=== PATIENT | female | born 1975 | race Hispanic/Latino ===

== ENCOUNTER 2017-01-03 14:41 | Emergency (ER) | payer OTHER ==
[~2017-01-03] VITALS: Ht 172.7 cm; Wt 98.0 kg
[~2017-01-03 14:41] MED LIST: DICYCLOMINE HCL20 MG PO; IBUPROFEN800 MG PO
--- NOTE | 2017-01-03 14:51 | ED CARDIAC/CP/PALPITATIONS ---
History of Present Illness General Chief Complaint: Chest Pain Stated Complaint: CHEST PRESSURE Source: patient Exam Limitations: no limitations Vital Signs & Intake/Output Vital Signs & Intake/Output Vital Signs Date Time Temp Pulse Resp B/P B/P Pulse O2 O2 Flow FiO2 Mean Ox Delivery Rate 01/03 2253 98.9 88 18 112/66 99 Room Air Room Air 01/03 2140 99.4 90 18 105/54 100 Room Air 01/03 2136 95 Nasal 2.0L Cannula 01/03 1954 98.2 88 18 136/72 100 Room Air Room Air 01/03 1707 98.1 90 18 116/66 100 Room Air 01/03 1451 97.9 99 16 122/77 98 Room Air ED Intake and Output 01/04 0000 01/03 1200 Intake Total Output Total Balance Patient 216 lb Weight Weight Reported by Patient Measurement Method Allergies Coded Allergies: oxycodone (From PERCOCET) (GI DISTRESS 01/03/17) Reconcile Medications No Known Home Medications Triage Nurses Notes Reviewed? yes Onset: Gradual Duration: getting worse Timing: recent history Quality/Severity: moderate Location: substernal Radiation: no radiation Activities at Onset: activity HPI: Patient is a 41-year-old female with past medical history of fibromyalgia, anxiety, depression, IBS, and asthma and anemia who presents emergency room stating that approximately one month ago patient began having generalized lower extremity muscle tightness in weakness and associated symptoms of significant heavy vaginal bleeding and clotting production where she states that the bleeding had continued for approximately 3 weeks where patient usually is a regular menstrual cycle history where she states that her symptoms worsens of her generalized weakness fatigue and muscle tightness of her lower extremities. Patient states that 1 week ago the vaginal bleeding had ceased however she states in the last 24 hours of bleeding had recurred to her normal menstrual cycle bleeding production. Patient has associated typical generalized abdominal cramping from her menstrual cycle. Patient also complains of a three-day history of chest tightness and shortness of breath dyspnea on exertion and worsening fatigue patient states that the chest tightness is worse with deep inhalation. Patient does wake up with night sweats since symptoms began and has tactile intermittent fevers. Patient denies any headache neck pain neck stiffness palpitations arm pain and jaw pain nausea vomiting denies any wheezing hemoptysis leg swelling recent travel recent surgery oral contraceptive use or history of DVT or PE. Patient is able tolerate by mouth Patient does complain of dark malodorous urine Denies any smoking tobacco history or illicit drug history (SANDHYA AUGUSTE) Past History Travel History Traveled to [place] past 21 day No Medical History Any Pertinent Medical History? 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 No (SANDHYA AUGUSTE) Review of Systems Review of Systems Constitutional: Reports: see HPI, malaise, weakness. EENTM: Reports: no symptoms. Respiratory: Reports: see HPI, short of breath. Cardiovascular: Reports: see HPI, chest pain. GI: Reports: see HPI. Genitourinary: Reports: see HPI. Musculoskeletal: Reports: see HPI, muscle stiffness. Skin: Reports: no symptoms. Neurological/Psychological: Reports: no symptoms. Hematologic/Endocrine: Reports: no symptoms. Immunologic/Allergic: Reports: no symptoms. All Other Systems: Reviewed and Negative (SANDHYA AUGUSTE) Physical Exam Physical Exam General Appearance: no apparent distress, comfortable, PALE COMPLEXION Cardiovascular: tachycardia Comments: HEENT: Normal EENT exam Neck: Supple, no lymphadenopathy, normal range of motion without pain or tenderness Back: Nontender, no CVA tenderness. Respiratory: Chest nontender. No respiratory distress.breath sounds clear to auscultation bilaterally Abdomen: Soft, nontender nondistended, no appreciable organomegaly. Normal bowel sounds. No ascites Extremity: No edema, no calf tenderness to palpation, normal and equal pulses. Bilateral upper extremity and lower extremity myotomes dermatomes intact Neuro: Alert oriented x3, motor sensory normal, Skin: No appreciable rash on exposed skin, skin is warm and dry. Psych: Mood and affect is normal, memory and judgment is normal. Core Measures ACS in differential dx? Yes Severe Sepsis Present: No Septic Shock Present: No (SANDHYA AUGUSTE) Progress Differential Diagnosis: AMI, aortic dissection, atrial fibrillation, cholecystitis, CHF/pulm edema, costochondritis, hyperkalemia, hypovolemia, hyperthyroid, hyperventilation, intracranial hemorrhage, musculoskeletal pain, myocarditis, pancreatitis, pericarditis, pneumonia, pneumothorax, PSVT, pulmonary embolism, PUD/GERD, PVCs/PACs, respiratory failure, sepsis, unstable angina, V-fib/V-Tach, WPW syndrome Plan of Care: Orders Procedure Date/time Status Regular Diet 01/04 B Active TROPONIN LEVEL 01/03 1930 Complete EKG 01/03 1930 Active BLOOD PRODUCT PICKUP 01/03 1754 Active LEUKOCYTE POOR (PACKED CELLS) 01/03 155 Active Add-on Test (ER Only) 01/03 1556 Active TOTAL IRON BINDING CAPACITY 01/03 1526 Complete FERRITIN 01/03 1526 Complete SERUM IRON 01/03 1526 Complete Telemetry/Local Superintendent 01/03 1516 Active URINALYSIS 01/03 1516 Complete THYROID STIMULATING HORMONE 01/03 1516 Complete TROPONIN LEVEL 01/03 1516 Complete PARTIAL THROMBOPLASTIN TIME 01/03 1516 Complete PROTHROMBIN TIME 01/03 1516 Complete MAGNESIUM 01/03 151 Complete HUMAN BETA HCG SCREEN 01/03 151 Complete FREE T4 01/03 151 Complete D-DIMER 01/03 151 Complete COMPREHENSIVE METABOLIC PANEL 01/03 1516 Complete CBC WITHOUT DIFFERENTIAL 01/03 151 Complete TYPE & SCREEN (NOT X-MATCH) 01/03 151 Complete EKG 01/03 1442 Active Laboratory Tests 01/03/17 194: Troponin I < 0.01 01/03/17 152: Anion Gap 13, Estimated GFR > 60, BUN/Creatinine Ratio 10.0, Glucose 94, Calcium 8.5, Magnesium 1.9, Iron 18 L, TIBC 466, Ferritin 2.7 L, Total Bilirubin 0.5, AST 14, ALT 24, Alkaline Phosphatase 69, Troponin I < 0.01, Total Protein 7.3, Albumin 3.9, Globulin 3.4, Albumin/Globulin Ratio 1.1, TSH 1.490, Free T4 0.76, Total Beta HCG NEGATIVE, PT 11.5, INR 1.10, APTT 24 L, D-Dimer 398 H, CBC w Diff NO MAN DIFF REQ, RBC 3.12 L, MCV 58.9 L, MCH 17.1 L, RDW 18.7 H, MPV 6.9 L, Gran % 66.8, Lymphocytes % 25.5, Monocytes % 3.7, Eosinophils % 4.0, Basophils % 0 L, Absolute Granulocytes 4.1, Absolute Lymphocytes 1.6, Absolute Monocytes 0.2, Absolute Eosinophils 0.3, Absolute Basophils 0, PUBS MCHC 29.0 L 01/03/17 1339: Urine Color YEL, Urine Clarity HAZY H, Urine pH 6.5, Ur Specific [place] 1.020, Urine Protein TRACE H, Urine Ketones TRACE H, Urine Nitrite NEG, Urine Bilirubin NEG, Urine Urobilinogen 1.0, Ur Leukocyte Esterase NEG, Ur Microscopic SEDIMENT EXAMINED, Urine RBC 1-3, Urine WBC RARE, Ur Epithelial Cells MOD H, Urine Bacteria FEW H, Urine Mucus FEW, Urine Hemoglobin LARGE H, Urine Glucose NEG Patient currently is resting comfortably on bedside after INITIAL examination It was noted to me the patient has critical findings of anemia in which she is signed blood transfusion consent form Patient currently also states that she has not actively vaginally bleeding the patient patient still resting comfortably bedside. Discussed patient with Dr. Joel who we discussed disposition and plan is patient to receive second troponin receive IV blood transfusion and to follow-up with hematology CT scan was unremarkable for pulmonary embolism After blood transfusion was administered there was no allergic reaction patient had improvement of her symptoms patient had normal steady gait upon discharge. Patient was strongly advised to follow-up with changer fixer which she states that she has not followed up with him in some time in which patient was also given a referral for DR. WESTBROOK Patient's second set of troponin was unremarkable EKG unremarkable At this time due to history of present illness and lab findings the patient's symptoms are due to chronic worsening iron deficiency anemia. Patient was strongly advised to begin oral supplementation of iron Discussed disposition plan WITH DR. GARZA WHO AGREES (KATHERINE ZHOU,SANDHYA) Diagnostic Imaging: Viewed by Me: CT Scan. Radiology Impression: no acute abnormality, no fracture Initial ED EKG: SINUS RHYTHM NOTED 103 BPM Repeat EKG: unchanged Comments: PATIENT: DOMINGA CHARLES PRESENT AGE: 41 PATIENT ACCOUNT NO: [id number] : 75 LOCATION: [facility] ORDERING PHYSICIAN: SANDHYA ZHOU SERVICE DATE: 01/03/17 EXAM TYPE: CAT - CTA CHEST-PULMONARY EMBOLISM EXAMINATION: CT ANGIOGRAM CHEST WITH AND WITHOUT CONTRAST (CT PULMONARY ANGIOGRAM FOR PE) CLINICAL INFORMATION: Chest pain, elevated D-dimer. COMPARISON: No relevant prior studies are available for comparison. TECHNIQUE: Prior to contrast administration, noncontrast localization images were obtained. Subsequently, multidetector volumetric imaging was performed from the thoracic inlet to below the diaphragms following the administration of 74 mL Optiray 350 intravenous contrast. No contrast reaction reported. Sagittal, coronal, and MIP oblique sagittal reformatted images were obtained on the CT workstation, uploaded to PACS, and reviewed. Total exam dose-length product 530.51 mGy-cm. FINDINGS: QUALITY OF STUDY/CONTRAST BOLUS: Satisfactory PULMONARY ARTERIES: No definite central or segmental pulmonary emboli. There are areas of altered hypodensity throughout the central pulmonary vessels, likely secondary to streak artifact. THORACIC AORTA: No aneurysm or dissection. LUNG: No focal consolidation, nodules or masses. PLEURA: No pleural effusion or pneumothorax. MEDIASTINUM: Normal heart size. No pericardial effusion. No hilar or mediastinal lymphadenopathy. No evidence of septal bowing or right heart strain. CHEST WALL/AXILLA: No axillary or internal mammary lymphadenopathy. OSSEOUS STRUCTURES: No acute or suspicious osseous abnormality. UPPER ABDOMEN: Unremarkable. No reflux of contrast into the hepatic veins to suggest elevated right heart pressures. IMPRESSION: No definite central or segmental pulmonary emboli. Areas of relative hypointensity within the central pulmonary vessels, likely secondary to streak artifact. Clear lungs. VTE: Negative. (SANDHYA AUGUSTE) Departure Departure Disposition: HOME OR SELF CARE Condition: Stable Clinical Impression Primary Impression: Symptomatic anemia Referrals: JAYSHREE TORRES,TIMA Hansen (PCP/Family) PIETRO TORRES,YUAN Pedroza Additional Instructions: As discussed please follow-up with your established changer fixer and/or follow- up with changer fixer Dr. WESTBROOK for further evaluation treatment. Begin previously prescribed iron. Follow-up with your primary care doctor on Thursday. If symptoms worsen return to emergency room. Departure Forms: Customer Survey General Discharge Information Prescriptions: Current Visit Scripts No Known Home Medications (SANDHYA AUGUSTE) PA/CERTIFIED DIABETES EDUCATOR Co-Sign Statement Statement: ED Attending supervision documentation- [] I saw and evaluated the patient. I have also reviewed all the pertinent lab results and diagnostic results. I agree with the findings and the plan of care as documented in the PA's/CERTIFIED DIABETES EDUCATOR's documentation. [X] I have reviewed the ED Record and agree with the PA's/CERTIFIED DIABETES EDUCATOR's documentation. [] Additions or exceptions (if any) to the PAs/CERTIFIED DIABETES EDUCATOR's note and plan are summarized below: [] (GREG TORRES,KARON) PA/CERTIFIED DIABETES EDUCATOR Co-Sign Statement Statement: ED Attending supervision documentation- [] I saw and evaluated the patient. I have also reviewed all the pertinent lab results and diagnostic results. I agree with the findings and the plan of care as documented in the PA's/CERTIFIED DIABETES EDUCATOR's documentation. [] I have reviewed the ED Record and agree with the PA's/CERTIFIED DIABETES EDUCATOR's documentation. [] Additions or exceptions (if any) to the PAs/CERTIFIED DIABETES EDUCATOR's note and plan are summarized below: [] (GILBERT TORRES,DARYA Bazan) Critical Care Note Critical Care Note Critical Care Time: 30-74 min (SANDHYA AUGUSTE)
[2017-01-03 15:37] LABS: ABSOLUTE BASOPHIL COUNT 0 /CUMM (0.0-0.2); MEAN PLATELET VOLUME 6.9 FL (7.4-10.4); WHITE BLOOD CELL COUNT 6.2 /CUMM (4.8-10.8)
[2017-01-03 15:41] LABS: ABSOLUTE EOSINOPHIL COUNT 0.3 /CUMM (0.0-0.7); ABSOLUTE GRANULOCYTE CT 4.1 /CUMM (1.4-6.5); ABSOLUTE LYMPH COUNT 1.6 /CUMM (1.2-3.4); ABSOLUTE MONOCYTE COUNT 0.2 /CUMM (0.10-0.60); BASOPHIL % 0 % (0.0-2.0); GRANULOCYTE % 66.8 % (42.2-75.2); MEAN CORPUSCULAR HGB 17.1 PG (27.0-31.0); MEAN CORPUSCULAR VOLUME 58.9 FL (81.0-99.0); PLATELET COUNT 410 /CUMM (130-400); RBC DISTRIBUTION WIDTH 18.7 % (11.5-14.5); RED BLOOD CELL CT 3.12 /CUMM (4.20-5.40)
[2017-01-03 15:45] LABS: HEMATOCRIT 18.4 % (37-47)
[2017-01-03 16:10] LABS: PT 11.5 SEC (9.4-12.5); PTT 24 SEC (25-37)
--- NOTE | 2017-01-03 18:20 | CT SCAN REPORT ---
EXAMINATION: CT ANGIOGRAM CHEST WITH AND WITHOUT CONTRAST (CT PULMONARY ANGIOGRAM FOR PE) CLINICAL INFORMATION: Chest pain, elevated D-dimer. COMPARISON: No relevant prior studies are available for comparison. TECHNIQUE: Prior to contrast administration, noncontrast localization images were obtained. Subsequently, multidetector volumetric imaging was performed from the thoracic inlet to below the diaphragms following the administration of 74 mL Optiray 350 intravenous contrast. No contrast reaction reported. Sagittal, coronal, and MIP oblique sagittal reformatted images were obtained on the CT workstation, uploaded to PACS, and reviewed. Total exam dose-length product 530.51 mGy-cm. FINDINGS: QUALITY OF STUDY/CONTRAST BOLUS: Satisfactory PULMONARY ARTERIES: No definite central or segmental pulmonary emboli. There are areas of altered hypodensity throughout the central pulmonary vessels, likely secondary to streak artifact. THORACIC AORTA: No aneurysm or dissection. LUNG: No focal consolidation, nodules or masses. PLEURA: No pleural effusion or pneumothorax. MEDIASTINUM: Normal heart size. No pericardial effusion. No hilar or mediastinal lymphadenopathy. No evidence of septal bowing or right heart strain. CHEST WALL/AXILLA: No axillary or internal mammary lymphadenopathy. OSSEOUS STRUCTURES: No acute or suspicious osseous abnormality. UPPER ABDOMEN: Unremarkable. No reflux of contrast into the hepatic veins to suggest elevated right heart pressures. IMPRESSION: No definite central or segmental pulmonary emboli. Areas of relative hypointensity within the central pulmonary vessels, likely secondary to streak artifact. Clear lungs. VTE: Negative.
[2017-01-03 22:53] VITALS: BP 112/66
== END 2017-01-03 23:04 ==
LOC: ERH 14:41
PROVIDERS: Physician Assistant
DX: D64.9 Anemia, unspecified (principal); R07.89 Other chest pain
CPT/HCPCS: 81001; 86920; 93005; 93010; 96374; 99291; P9016